=== PATIENT | male | born 1960 | race Two or more races ===

== ENCOUNTER 2024-02-24 06:12 | Day surgery (SDC) | payer MEDICARE, SELFPAY ==
[2024-02-05 06:59] VITALS: BMI 41.8
[2024-02-05 09:07] LABS: Hematocrit 37.1 % (39.0-52.0); Hemoglobin 12.6 g/dL (13.0-18.0); Mean Corpuscular Hgb 28.8 pg (27.0-31.0); Mean Corpuscular Volume 84.7 fL (80.0-94.0); Mean Platelet Volume 9.8 fL (7.4-10.4); Platelet Count 289 10^3/uL (130-400); Red Blood Cell Count 4.38 10^6/uL (4.70-6.10); Red Cell Dist. Width 13.2 % (11.5-14.5)
[2024-02-05 09:56] LABS: ALT (SGPT) 30 U/L (0-50); AST (SGOT) 28 U/L (17-59); Albumin 4.1 g/dl (3.5-5.0); Alkaline Phosphatase 97 U/L (38-126); Blood Urea Nitrogen 24 mg/dl (9-20); Calcium 9.3 mg/dl (8.4-10.2); Carbon Dioxide 31 mmol/L (22-30); Chloride 99 mmol/L (98-107); Estimated Creatinine Clearance 70 ml/min; Glucose 80 mg/dl (70-99); Sodium 140 mmol/L (135-145); Total Bilirubin 0.6 mg/dl (0.2-1.3); Total Protein 6.3 g/dl (6.3-8.2); eGFR > 60.00
[2024-02-05 10:09] LABS: Glycohemoglobin (HgbA1c) 6.5 % (4.0-5.6)
--- NOTE | 2024-02-10 14:59 | VNURNOTE ---
Patient is scheduled for an elective R TKA on 02/24/24. He is a same day surgery.
Spoke to patient�s spouse Marta on phone. She reports they live in a single story home. Has 1 step to enter home. Spouse states he does not have a walker and left a message with ortho for a prescription. Spouse states patent has an apt with ortho
next week. Marta will be with patient when he gets home and will be providing transportation.
Patient plans to have outpatient therapy through [facility] and appointment spring made. Reviewed he will have VN services initially and then will start outpatient therapy. Explained role of SN and PT in home.
Spouse selects [facility]N for patient�s homecare needs. Referral completed in [facility]
PCP is Dr. Mary Cooper. RX: is LILY Dee
--- NOTE | 2024-02-10 15:15 | VNURNOTE ---
Patient is scheduled for a left TKA 02/24/24 as same day surgery
--- NOTE | 2024-02-19 13:01 | VNURNOTE ---
Followed up with spouse, Marta, confirmed with her that patient has obtained rolling walker and cane and gel pack. Advised to bring with them day of surgery.
[2024-02-22 12:06] VITALS: BMI 41.8
[2024-02-24] VITALS (9 sets, daily range): BP systolic 105–146; BP diastolic 69–92; PULSE 85; O2SAT 93
[2024-02-24] MEDS: CELEBREX 200 MG PO (06:18)
[2024-02-24] MEDS: TYLENOL 650 MG PO (06:18)
[2024-02-24] MEDS: NORMOSOL-R/PLASMALYTE-A 1000 IV (06:30)
[2024-02-24 06:39] LABS: Glucose - Point of Care 103 mg/dl (70-99)
[2024-02-24 08:32] LABS: Glucose - Point of Care 82 mg/dl (70-99)
[2024-02-24 10:27] LABS: Glucose - Point of Care 115 mg/dl (70-99)
[2024-02-24] MEDS: ANCEF 5 IV (11:25)
[2024-02-24] MEDS: ROXICODONE 5 MG PO (11:47)
== END 2024-02-24 12:55 | disposition home or self-care (01) ==
LOC: SDS 06:12
PROVIDERS: ATTENDING PHYSICIAN Orthopaedic Surgery; FAMILY PHYSICIAN Nurse Practitioner Acute Care
DX: M17.12 Unilateral primary osteoarthritis, left knee (principal)
CPT/HCPCS: 27447; 36415; 73560; 80053; 82962; 83036; 85027; 87070; 93005; 97116; 97162; C1713; C1776

== ENCOUNTER 2024-12-14 05:44 | Day surgery (SDC) | payer MEDICARE, SELFPAY ==
[2024-11-30 10:18] VITALS: BMI 39.3
[2024-11-30 11:34] LABS: Hematocrit 38.7 % (39.0-52.0); Hemoglobin 13.0 g/dL (13.0-18.0); Mean Corp Hgb Conc. 33.6 g/dL (33.0-37.0); Mean Corpuscular Volume 84.3 fL (80.0-94.0); Platelet Count 278 10^3/uL (130-400); Red Cell Dist. Width 13.4 % (11.5-14.5)
[2024-11-30 12:05] LABS: ALT (SGPT) 25 U/L (0-50); AST (SGOT) 25 U/L (17-59); Albumin 4.3 g/dl (3.5-5.0); Alkaline Phosphatase 87 U/L (38-126); Blood Urea Nitrogen 20 mg/dl (9-20); Calcium 9.5 mg/dl (8.4-10.2); Carbon Dioxide 29 mmol/L (22-30); Chloride 103 mmol/L (98-107); Estimated Creatinine Clearance 63 ml/min; Glucose 75 mg/dl (70-99); Potassium 4.6 mmol/L (3.5-5.1); Sodium 137 mmol/L (135-145); Total Protein 6.7 g/dl (6.3-8.2); eGFR > 60.00
[2024-11-30 12:10] LABS: Glycohemoglobin (HgbA1c) 6.7 % (4.0-5.6)
[2024-11-30 14:18] VITALS: BMI 39.3
--- NOTE | 2024-12-01 13:31 | VNURNOTE ---
Patient is scheduled for an elective R TKA on 12/14 - he is a same day patient with Dr Chen. Spoke with patient prior to surgery. Introduced role of [facility] Liaison. Patient reports that he lives with his in a 1 story home.
There are 1 steps to enter.
He has a raised toilet seat, cane and rolling walker.
He had VN services after his prior joint replacement and was same day surgery.
PCP is Dr Mary Cooper
Discussed [facility] joint protocol and post surgical plans.
Reviewed that he will have VN services initially and will then start outpatient PT.
Patient selects [facility] for his home care needs and will go to [facility] for outpatient PT. Scheduled for 12/19 .
Patient is in agreement with plan and states that his will be home with him. Advised to bring RW with him day of surgery. Pet policy reviewed with him, he has a small dog at home. He verbalized understanding and agreement with pet policy.
[facility]erral placed in [facility].
Plan: [facility] per [facility] joint protocol 12/14 then outpt PT on 12/19
[2024-12-14] VITALS (9 sets, daily range): BP systolic 119–152; BP diastolic 64–93; PULSE 84; O2SAT 99
[2024-12-14] MEDS: CELEBREX 200 MG PO (06:19)
[2024-12-14] MEDS: TYLENOL 650 MG PO (06:19)
[2024-12-14 06:33] LABS: Glucose - Point of Care 72 mg/dl (70-99)
[2024-12-14] MEDS: NORMOSOL-R/PLASMALYTE-A 1000 IV (06:45)
[2024-12-14] MEDS: BACTROBAN NASAL 1 GRAM NASAL (06:45)
[2024-12-14] MEDS: ROXICODONE 5 MG PO ×2 (09:26→10:26)
[2024-12-14] MEDS: ANCEF 5 IV (11:00)
--- NOTE | 2024-12-14 12:24 | PTCARENOTE ---
Patient attempted to void 2 more times without success. Bladder scanned patient at bedside for 1032 cc. Verónica Marks PA-C made aware and orders placed for flomax and straight cath within 45 mins if patient does not void. Will continue to monitor.
[2024-12-14] MEDS: FLOMAX 0.4 MG PO (12:28)
== END 2024-12-14 13:00 | disposition home health service (06) ==
LOC: SDS 05:44
PROVIDERS: ATTENDING PHYSICIAN Orthopaedic Surgery; FAMILY PHYSICIAN Family Medicine; OTHER PHYSICIAN Physician Assistant
DX: M17.11 Unilateral primary osteoarthritis, right knee (principal)
CPT/HCPCS: 27447; 36415; 73560; 80053; 82962; 83036; 85027; 87070; 93005; 97162; 97530; C1713; C1776